=== PATIENT | female | born 1930 | race Caucasian/White ===

== ENCOUNTER 2017-04-27 23:54 | Inpatient (IN) | payer OTHER ==
[~2017-04-27] VITALS: Ht 152.4 cm; Wt 66.6 kg
[~2017-04-27 23:54] MED LIST: ACTOS15 MG PO; ACTOS30 MG PO; ARICEPT5 MG PO; Ascorbic Acid,Ester- PO; CALCIUM600 MG PO; COUMADIN5 MG PO; COUMADIN7.5 MG PO; DONEPEZIL HCL5 MG PO; DULCOLAX5 MG PO; FEOSOL325 MG PO; Folvite PO; GLUCOPHAGE500 MG PO; METFORMIN HCL500 MG PO; MICROZIDE12.5 M1 PO; MIRALAX, GLYCOL1 PK1 PO; Oyst-Cal D, Oscal W/ PO; PRINIVIL5 MG PO; SENOKOT S,PE1 TABLET PO; SIMVASTATIN40 M1 PO; SIMVASTATIN40 MG PO; THERAGRAN1 TABLET PO; TYLENOL EXTRA500 MG PO; TYLENOL REGULA325 MG PO; Tums PO; Tylenol Regular Stre PO; VITAMIN D1000 INTUN PO; Vicodin,Lortab 5/500 PO; ZESTRIL,PRINIVI10 MG PO; Zestril,Prinivil PO; Zocor PO
[2017-04-28 01:19] LABS: EOSINOPHIL (%) 0 % (0-5); HEMATOCRIT 40.2 % (36.0-46.0); IMMATURE GRANULOCYTE (%) 0.4 % (0.0-0.7); INSTRUMENT ABS NEUTROPHIL CT 8.3 K/uL; LYMPHOCYTE COUNT 1.2 K/uL (1.0-2.8); MCH 30.5 PG (29.0-34.0); MCHC 32.6 G/DL (30.0-36.0); MCV 93.5 FL (83-99); MONOCYTE (%) 8.7 % (3-12); MONOCYTE COUNT 0.9 K/uL (0-0.8); NEUTROPHIL (%) 78.8 % (45-76); NEUTROPHIL COUNT 8.3 K/uL (1.8-6.4); PLATELET COUNT 240 K/uL (156-360); RBC DIS.WIDTH-CV 13.6 % (11.8-14.6); RBC DIS.WIDTH-SD 46.6 % (39-53); WHITE BLOOD COUNT 10.6 K/uL (4.1-10.2)
[2017-04-28 01:44] LABS: CHLORIDE 105 mEq/L (99-109); POTASSIUM 3.4 mEq/L (3.7-5.4); SODIUM 139 mEq/L (136-147)
[2017-04-28 01:47] LABS: GLUCOSE 114 mg/dL (70-99)
[2017-04-28 01:48] LABS: ANION GAP 12 MEQ/L (2-14)
[2017-04-28 01:49] LABS: TROP-I INTERPRETATION NEGATIVE; TROPONIN-I 0.03 ng/mL (0.0-0.30)
[2017-04-28 01:50] LABS: ALKALINE PHOSPHATASE 71 IU/L (3-129); GFR ESTIMATE (CALCULATED) 32 mL/min/
[2017-04-28 01:51] LABS: UREA NITROGEN (BUN) 30 mg/dL (9-23)
[2017-04-28 01:59] LABS: ADD MIUA? YES; BILIRUBIN NEGATIVE; BLOOD MODERATE; COLOR YELLOW ((YELLOW)); GLUCOSE (STRIP) NEGATIVE; KETONES NEGATIVE; LEUKOCYTES SMALL; NITRITE NEGATIVE; PROTEIN (STRIP) 100; SPECIFIC GRAVITY 1.016 (1.000-1.030); UROBILINOGEN 0.2 MG/DL (0.2-1.0)
[2017-04-28 02:23] LABS: RED BLOOD CELLS NONE SEEN /HPF (0-5); WHITE BLOOD CELLS 0-5 /HPF (0-5)
[2017-04-28 02:24] LABS: BACTERIA RARE /HPF; CASTS NONE SEEN /LPF; CRYSTALS PRESENT; EPITHELIAL CELLS RARE /HPF; MUCUS NONE SEEN /LPF; UCUL ADDED? NO
[2017-04-28 02:25] LABS: AMORPHOUS URATES CRYSTALS 3+
[2017-04-28 08:00] VITALS: BP 136/70
[2017-04-28 09:15] LABS: INTER. NORMALIZED RATIO 1.3; PROTHROMBIN TIME 14.1 SEC (10.2-12.9)
[2017-04-28 11:18] VITALS: BP 133/74
[2017-04-28 15:20] VITALS: BP 141/70
[2017-04-28 20:36] VITALS: BP 130/107
[2017-04-28 23:51] VITALS: BP 178/83
[2017-04-29 04:12] VITALS: BP 128/69
[2017-04-29 06:31] LABS: INTER. NORMALIZED RATIO 1.3; PROTHROMBIN TIME 14.2 SEC (10.2-12.9)
[2017-04-29 07:39] VITALS: BP 140/67
[2017-04-29 12:14] VITALS: BP 112/67
[2017-04-29 15:37] VITALS: BP 132/64
[2017-04-29] MEDS ORDERED: TYLENOL PM1 CAPLET PO (15:47)
[2017-04-29 20:57] VITALS: BP 174/76
[2017-04-30 00:24] VITALS: BP 181/107
[2017-04-30 06:19] LABS: ANION GAP 9 MEQ/L (2-14); CHLORIDE 107 MEQ/L (99-109); GFR ESTIMATE (CALCULATED) 45 mL/min/; GLUCOSE 121 mg/dL (70-99); POTASSIUM 3.8 MEQ/L (3.7-5.4); SAMPLE HEMOLYSIS CHECK 0; SAMPLE ICTERIC CHECK 0; SAMPLE LIPEMIA CHECK 0; SODIUM 140 MEQ/L (136-147); UREA NITROGEN (BUN) 17 mg/dL (9-23)
[2017-04-30 06:39] LABS: INTER. NORMALIZED RATIO 1.4; PROTHROMBIN TIME 15.9 SEC (10.2-12.9)
[2017-04-30 06:44] LABS: EOSINOPHIL COUNT 0.1 K/uL (0-0.3); HEMATOCRIT 32.6 % (36.0-46.0); IMMATURE GRANULOCYTE (%) 0.5 % (0.0-0.7); INSTRUMENT ABS NEUTROPHIL CT 4.8 K/uL; MCH 30.7 PG (29.0-34.0); MCHC 33.1 G/DL (30.0-36.0); MCV 92.6 FL (83-99); MEAN PLAT.VOLUME 10.4 uM^3 (9.5-12.4); MONOCYTE (%) 10.7 % (3-12); MONOCYTE COUNT 0.7 K/uL (0-0.8); NEUTROPHIL (%) 71.9 % (45-76); NEUTROPHIL COUNT 4.8 K/uL (1.8-6.4); PLATELET COUNT 199 K/uL (156-360); RBC DIS.WIDTH-CV 13.5 % (11.8-14.6); RBC DIS.WIDTH-SD 46.1 % (39-53); RED BLOOD COUNT 3.52 M/uL (3.80-5.20); WHITE BLOOD COUNT 6.7 K/uL (4.1-10.2)
[2017-04-30 07:10] VITALS: BP 115/51
[2017-04-30] MEDS ORDERED: COUMADIN7.5 MG PO (10:41)
[2017-04-30 15:15] VITALS: BP 173/81
[2017-05-01 02:15] VITALS: BP 132/60
[2017-05-01 06:29] LABS: INTER. NORMALIZED RATIO 1.7; PROTHROMBIN TIME 19.1 SEC (10.2-12.9)
[2017-05-01 06:50] VITALS: BP 135/69
[2017-05-01 15:00] VITALS: BP 185/99
[2017-05-01 16:17] VITALS: BP 161/89
[2017-05-02 01:34] VITALS: BP 152/75
[2017-05-02 06:44] LABS: INTER. NORMALIZED RATIO 2.4
[2017-05-02 06:48] LABS: PROTHROMBIN TIME 27.9 SEC (10.2-12.9)
[2017-05-02 07:00] LABS: BASOPHIL COUNT 0.1 K/uL (0-0.1); EOSINOPHIL (%) 5.3 % (0-5); EOSINOPHIL COUNT 0.3 K/uL (0-0.3); HEMATOCRIT 32.8 % (36.0-46.0); IMMATURE GRANULOCYTE (%) 0.2 % (0.0-0.7); INSTRUMENT ABS NEUTROPHIL CT 2.8 K/uL; LYMPHOCYTE COUNT 1.6 K/uL (1.0-2.8); MCH 30.9 PG (29.0-34.0); MCHC 32.9 G/DL (30.0-36.0); MONOCYTE (%) 10.2 % (3-12); MONOCYTE COUNT 0.5 K/uL (0-0.8); NEUTROPHIL (%) 53.9 % (45-76); NEUTROPHIL COUNT 2.8 K/uL (1.8-6.4); RBC DIS.WIDTH-CV 13.5 % (11.8-14.6); RBC DIS.WIDTH-SD 46.2 % (39-53); RED BLOOD COUNT 3.49 M/uL (3.80-5.20); WHITE BLOOD COUNT 5.3 K/uL (4.1-10.2)
[2017-05-02 07:07] LABS: PLATELET COUNT 261 K/uL (156-360)
[2017-05-02 07:10] LABS: ANION GAP 10 MEQ/L (2-14); CHLORIDE 110 MEQ/L (99-109); GFR ESTIMATE (CALCULATED) 56 mL/min/; GLUCOSE 104 mg/dL (70-99); POTASSIUM 3.7 MEQ/L (3.7-5.4); SAMPLE HEMOLYSIS CHECK 0; SAMPLE ICTERIC CHECK 0; SAMPLE LIPEMIA CHECK 0; SODIUM 146 MEQ/L (136-147); UREA NITROGEN (BUN) 17 mg/dL (9-23)
[2017-05-02 07:21] VITALS: BP 133/78
[2017-05-02] MEDS ORDERED: AUGMENTIN875 MG PO (13:26)
== END 2017-05-02 16:13 | disposition home health service (06) | DRG 195 ==
LOC: EME 23:54 → EDOF 04-28 05:21 → 5EAST 04-28 05:21 → ENRESERV 04-28 05:33 → 5EAST 04-28 07:47 → ENPENDDIS 05-02 → 5EAST 05-02 16:13
PROVIDERS: Emergency Medicine; Family Medicine
DX: J18.9 Pneumonia, unspecified organism (principal); F03.90 Unspecified dementia, unspecified severity, without behavioral disturbance, psychotic disturbance, mood disturbance, and anxiety; R63.0 Anorexia; E11.9 Type 2 diabetes mellitus without complications; E78.5 Hyperlipidemia, unspecified; I10 Essential (primary) hypertension; N28.9 Disorder of kidney and ureter, unspecified; Z86.711 Personal history of pulmonary embolism; Z86.718 Personal history of other venous thrombosis and embolism; Z96.653 Presence of artificial knee joint, bilateral; M19.90 Unspecified osteoarthritis, unspecified site; Z79.01 Long term (current) use of anticoagulants; R41.82 Altered mental status, unspecified
CPT/HCPCS: 70450; 71020; 80048; 80053; 81003; 83605; 84484; 85025; 85610; 87040; 93005; 97530 GO; 99281; 99285; J0456; J0696; J7030; J7050